=== PATIENT | female | born 1995 | race African-American/Black ===

== ENCOUNTER 2023-10-14 11:27 | Emergency (ER) | payer OTHER ==
[2023-10-14 11:36] VITALS: RESP 18; TEMP 97.6; BMI 32.5
[2023-10-14] MEDS ORDERED: hydrALAZINE HCL 20 MG/ML VIAL ONE (12:37)
[2023-10-14] MEDS ORDERED: ONDANSETRON 4 MG/2 ML VIAL ONE (12:37)
[2023-10-14 12:46] LABS: BASO % 0.3 % (0-2.0); EOS % 3.6 % (0-4.5); HEMATOCRIT 39.3 % (32.4-45.2); HEMOGLOBIN 13.1 GM/dL (10.7-15.3); LYMPH % 14.3 % (8-40); MCH 27.6 pg (25.7-33.7); MCHC 33.4 g/dl (32.0-36.0); MEAN CELL VOLUME 82.6 fl (80-96); MEAN PLT VOLUME 8.8 fl (7.5-11.1); MONO % 7.8 % (3.8-10.2); PLATELET COUNT 266 10^3/uL (134-434); RBC 4.77 M/mm3 (3.60-5.2); RDW 16.1 % (11.6-15.6); WHITE BLOOD COUNT 12.8 K/mm3 (4.0-10.0)
[2023-10-14 12:48] LABS: EPI CELLS 31 /uL (0-25.1); HYALINE CASTS 1 /uL (0-3.1); PH,URINE 6.5 (5.0-8.0); URINE APPEARANCE CLEAR; URINE BACTERIA 508 /uL (0-1359); URINE BILIRUBIN NEGATIVE (NEGATIVE); URINE COLOR YELLOW; URINE GLUCOSE (UA) NEGATIVE (NEGATIVE); URINE KETONE 1+ (NEGATIVE); URINE LEUK ESTERASE NEGATIVE (NEGATIVE); URINE NITRITE NEGATIVE (NEGATIVE); URINE PROTEIN 3+ (NEGATIVE); URINE RBC 22 /uL (0-23.9); URINE WBC 21 /uL (0-25.8)
[2023-10-14] MEDS: ONDANSETRON 4 MG/2 ML VIAL IVPUSH ONE (12:49)
[2023-10-14] MEDS: DEXTROSE 5%-LACTATED RINGERS 1,000 ML IV SCH (12:49)
[2023-10-14] MEDS: hydrALAZINE HCL 20 MG/ML VIAL IVPUSH ONE (12:49)
[2023-10-14 13:01] LABS: POTASSIUM 4.2 mmol/L (3.5-5.1)
[2023-10-14 13:04] LABS: BLOOD UREA NITROGEN 12.8 mg/dL (7-18); CALCIUM 9.2 mg/dL (8.5-10.1); MAGNESIUM 2.1 mg/dL (1.8-2.4)
[2023-10-14 13:05] LABS: ALBUMIN 3.3 g/dl (3.4-5.0)
[2023-10-14 13:07] LABS: CREATININE 1.2 mg/dL (0.55-1.3)
[2023-10-14 13:09] LABS: BILIRUBIN,TOTAL 0.4 mg/dL (0.2-1); TOT PROT 7.5 g/dl (6.4-8.2)
[2023-10-14] MEDS ORDERED: LABETALOL HCL 100 MG TABLET (FP) ONE ×2 (13:19→14:12)
[2023-10-14] MEDS: LABETALOL HCL 100 MG TABLET (FP) PO ONE (13:31)
[2023-10-14] MEDS: LABETALOL HCL 200 MG TABLET (FP) PO ONE (14:16)
[2023-10-14 15:10] VITALS: PULSE 76
[2023-10-14] MEDS ORDERED: CEPHALEXIN MONOHYDRATE 500 MG CAPSULE (UD) ONE (17:46)
[2023-10-14] MEDS: CEPHALEXIN MONOHYDRATE 500 MG CAPSULE (UD) PO ONE (17:49)
[2023-10-14 18:38] VITALS: BP 130/84
== END 2023-10-14 18:43 | disposition home or self-care (01) ==
LOC: JER 11:27
PROC: 3E033NZ Introduction of Analgesics, Hypnotics, Sedatives into Peripheral Vein, Percutaneous Approach (ICD-10-PCS; principal; 2023-10-14)
PROC: 3E030GC Introduction of Other Therapeutic Substance into Peripheral Vein, Open Approach (ICD-10-PCS; 2023-10-14)
DX: O21.9 Vomiting of pregnancy, unspecified (principal); O26.891 Other specified pregnancy related conditions, first trimester; R10.13 Epigastric pain; O10.011 Pre-existing essential hypertension complicating pregnancy, first trimester; O23.41 Unspecified infection of urinary tract in pregnancy, first trimester; Z3A.01 Less than 8 weeks gestation of pregnancy
CPT/HCPCS: 36415; 76817-TC; 80053; 81003; 83690; 83735; 84702; 85025; 87086; 93005; 93010; 99285-25